=== PATIENT | female | born 1935 | race Caucasian/White ===

== ENCOUNTER → 2016-08-04 | Outpatient (CLI) | payer OTHER ==
[~2016-08-04] MED LIST: LISI-167 PO; OXYC-302 PO; POLY119P4 PO
== END | disposition home or self-care (01) ==
LOC: CFH 11:18
PROVIDERS: ATTEND Internal Medicine
DX: M17.12 Unilateral primary osteoarthritis, left knee (principal); M16.12 Unilateral primary osteoarthritis, left hip

== ENCOUNTER 2018-05-02 04:08 | Inpatient (IN) | payer MEDICARE, OTHER ==
[~2018-05-02] VITALS: Ht 162.6 cm; Wt 71.8 kg
--- NOTE | 2018-05-02 04:21 | NUR ---
PT STATES POOR ORAL INTAKE SINCE MONDAY AND "I HAVENT REALLY POOPED SINCE MONDAY." PRESENTS TO ED C/O CARO AND LL ABD PAIN. STATES RECENT COLONOSCOPY W/ DX OF DIVERTICULOSIS. DENIES BLOODY STOOLS. DENIES SOB/CP. MONITORING APPLIED. CALL LIGHT WITHIN REACH.
--- NOTE | 2018-05-02 04:45 | NUR ---
UA OBTAINED AND PT HOOKED UP TO ALL MONITORING.
[2018-05-02] MEDS ORDERED: ONDANSETRON 2MG/ML, 2ML ONE ×4 (04:49→12:38)
[2018-05-02] MEDS ORDERED: MORPHINE SULFATE 4 MG/ML, 1ML ONE ×2 (04:50→05:30)
[2018-05-02] MEDS: MORPHINE SULFATE 4 MG/ML, 1ML IVPush PRN ×2 (04:53→05:34)
[2018-05-02] MEDS ORDERED: SODIUM CHLORIDE FLUSH 10ML SYR IVF ONE (05:00)
[2018-05-02] MEDS ORDERED: ONDANSETRON 2MG/ML, 2ML IVPush ONE ×2 (05:00→07:30)
[2018-05-02 05:04] LABS: CULTURE INDICATED? YES; MICROSCOPIC INDICATED
[2018-05-02 05:21] LABS: BASOPHILS # (AUTO) 0.03 x10^3/uL (0-0.1); BASOPHILS % (AUTO) 0 % (0-1); EOSINOPHILS # (AUTO) 0.14 x10^3/uL (0-0.4); EOSINOPHILS % (AUTO) 1 % (1-7); LYMPHOCYTES # (AUTO) 2.06 x10^3/uL (1-3.4); LYMPHOCYTES % (AUTO) 20 % (22-44); MD NO; MEAN CORPUSCULAR HEMOGLOBIN 30.2 pg (27.0-34.8); MEAN CORPUSCULAR VOLUME 88.9 fL (80-100); MEAN PLATELET VOLUME 9.5 fL (7.4-10.4); MONOCYTES # (AUTO) 0.89 x10^3/uL (0.2-0.8); MONOCYTES % (AUTO) 8 % (2-9); NEUTROPHILS # (AUTO) 7.39 x10^3/uL (1.8-6.8); NEUTROPHILS % (AUTO) 70 % (42-75); PLATELET COUNT 249 x10^3/uL (130-400); RED BLOOD COUNT 4.98 x10^6/uL (3.82-5.3); RED CELL DISTRIBUTION WIDTH 15.7 % (9.6-15.2)
--- NOTE | 2018-05-02 05:34 | NUR ---
PT STATES NO PAIN RELIEF FROM FIRST MORPHINE DOSE. GIVEN SECOND PER MAR AT THIS TIME.
[2018-05-02 05:35] LABS: ALANINE AMINOTRANSFERASE 22 U/L (12-78); ALBUMIN 3.8 g/dL (3.4-5.0); ANION GAP 8 mmol/L (5-15); CALCIUM 10.6 mg/dL (8.5-10.1); CHLORIDE 105 mmol/L (98-107); CREATININE 1.19 mg/dL (0.55-1.02)
[2018-05-02 05:39] LABS: ALKALINE PHOSPHATASE 74 U/L (45-117); BILIRUBIN,TOTAL 0.4 mg/dL (0.2-1.0); TOTAL PROTEIN 7.8 g/dL (6.4-8.2); TROPONIN I < 0.015 ng/mL (0.000-0.045)
[2018-05-02] MEDS ORDERED: OMNIPAQUE 350 MG/ML, 100ML BOTTLE ONE (06:03)
[2018-05-02] MEDS ORDERED: FENTANYL PF 100 MCG/2ML ONE (06:13)
--- NOTE | 2018-05-02 06:17 | NUR ---
PT STATES PAIN OF 9.5/10 STILL. PA NOTIFIED. GIVEN FENTANYL PER MAY. AWAITING CT RESULTS.
[2018-05-02] MEDS ORDERED: FENTANYL PF 100 MCG/2ML IVPush ONE (06:30)
--- NOTE | 2018-05-02 06:32 | NUR ---
PT DESAT TO MID 80'S AFTER PAIN MEDICAITON. PUT ON 3 L NC AND SAT 91% AND >.
--- NOTE | 2018-05-02 06:38 | NUR ---
ALL RESULTS BACK. PA TO CONSULT UROLOGY.
--- NOTE | 2018-05-02 06:46 | NUR ---
PT REPORT TO SONG CASTRO.
[2018-05-02] MEDS ORDERED: ASPI-647 PO (07:20)
[2018-05-02] MEDS ORDERED: AMLO10TA8 PO (07:20)
[2018-05-02] MEDS ORDERED: LOSA100T14 PO (07:20)
[2018-05-02] MEDS ORDERED: CALC1TAB86 PO (07:20)
[2018-05-02] MEDS ORDERED: SODIUM CHLORIDE FLUSH 10ML SYR IVF PRN (07:30)
[2018-05-02] MEDS ORDERED: hydrALAzine 20 MG/ML, 1ML IVPush PRN (08:30)
[2018-05-02] MEDS ORDERED: PLEASE ENTER HEIGHT AND WEIGHT MC SCH (08:30)
[2018-05-02] MEDS ORDERED: LACTATED RINGERS 1,000 ML IV SCH (08:30)
[2018-05-02] MEDS ORDERED: ONDANSETRON 2MG/ML, 2ML IVPush PRN (08:30)
[2018-05-02] MEDS: CEFTRIAXONE PMX 1GM/50ML 50 ML IV SCH (09:50)
[2018-05-02] MEDS: morphine SULFATE 10 MG/ML, 1ML IVPush PRN ×2 (11:00→15:35)
[2018-05-02] MEDS ORDERED: FENTANYL PF 250 MCG/5ML ONE (12:21)
[2018-05-02] MEDS ORDERED: MIDAZOLAM 1 MG/ML, 2ML ONE (12:21)
[2018-05-02] MEDS ORDERED: ROCURONIUM 10MG/ML,5ML ONE (12:38)
[2018-05-02] MEDS ORDERED: PROPOFOL 10 MG/ML, 20ML ONE (12:38)
[2018-05-02] MEDS ORDERED: DEXAMETHASONE 4 MG/ML, 1ML ONE ×2 (12:38)
[2018-05-02] MEDS ORDERED: LIDOCAINE 2% 100MG/5ML SYRINGE ONE (12:38)
[2018-05-02] MEDS ORDERED: SUCCINYLCHOLINE 20 MG/ML, 10ML ONE (12:58)
[2018-05-02] MEDS ORDERED: CEFAZOLIN 1,000 MG ONE (12:58)
[2018-05-02] MEDS ORDERED: PHENYLEPHRINE 10 MG/ML ONE (12:58)
[2018-05-02] MEDS ORDERED: HYDROmorphone 2 MG/ML, 1ML IVPush PRN (13:00)
[2018-05-02] MEDS ORDERED: PROMETHAZINE 25 MG/ML, 1ML IV PRN (13:00)
[2018-05-02] MEDS ORDERED: HALOPERIDOL 5 MG/ML IV PRN (13:00)
[2018-05-02] MEDS ORDERED: hydrALAzine 20 MG/ML, 1ML IV PRN (13:00)
[2018-05-02] MEDS ORDERED: DIAZEPAM 5 MG/ML, 2ML IVPush PRN (13:00)
[2018-05-02] MEDS ORDERED: MEPERIDINE/PF 25MG/0.5ML IVPush PRN (13:00)
[2018-05-02] MEDS ORDERED: FENTANYL PF 100 MCG/2ML IV PRN (13:00)
[2018-05-02] MEDS ORDERED: OXYcodone 5 MG/5 ML ORAL.SOL UDC PO PRN (13:00)
[2018-05-02] MEDS ORDERED: ACETAMINOPHEN 325 MG TABLET PO PRN (13:00)
[2018-05-02] MEDS ORDERED: MEPERIDINE/PF 25MG/ML,1ML ONE (14:48)
[2018-05-02] MEDS ORDERED: ONDANSETRON 2MG/ML, 2ML IV PRN (16:00)
[2018-05-02] MEDS ORDERED: HYDROcodone/APAP 5/325 TABLET PO PRN (16:00)
[2018-05-02] MEDS: LISINOPRIL MC SCH (16:00)
[2018-05-02] MEDS ORDERED: POLYETHYLENE GLYCOL 17 GM PACKET PO PRN (16:00)
[2018-05-02 16:34] VITALS: BP 120/69
[2018-05-02] MEDS: CALCIUM/VITAMIN D3 250-125 TABLET PO SCH ×2 (18:11→20:30)
[2018-05-02] MEDS: D5%-LACTATED RINGERS 1,000 ML IV SCH (18:11)
[2018-05-02 20:00] VITALS: BP 120/68
[2018-05-02] MEDS: morphine SULFATE 10 MG/ML, 1ML IV PRN (20:29)
[2018-05-03 02:00] VITALS: BP 111/64
[2018-05-03] MEDS: morphine SULFATE 10 MG/ML, 1ML IV PRN (03:53)
[2018-05-03] MEDS: D5%-LACTATED RINGERS 1,000 ML IV SCH (05:08)
[2018-05-03 05:19] LABS: BASOPHILS # (AUTO) 0.03 x10^3/uL (0-0.1); BASOPHILS % (AUTO) 0 % (0-1); EOSINOPHILS % (AUTO) 0 % (1-7); LYMPHOCYTES # (AUTO) 1.12 x10^3/uL (1-3.4); LYMPHOCYTES % (AUTO) 11 % (22-44); MD NO; MEAN CORPUSCULAR HEMOGLOBIN 29.9 pg (27.0-34.8); MEAN CORPUSCULAR HGB CONC 32.8 g/dL (32.4-35.8); MEAN CORPUSCULAR VOLUME 91.1 fL (80-100); MEAN PLATELET VOLUME 9.4 fL (7.4-10.4); MONOCYTES # (AUTO) 0.86 x10^3/uL (0.2-0.8); MONOCYTES % (AUTO) 9 % (2-9); NEUTROPHILS # (AUTO) 7.87 x10^3/uL (1.8-6.8); NEUTROPHILS % (AUTO) 80 % (42-75); PLATELET COUNT 201 x10^3/uL (130-400); RED BLOOD COUNT 3.77 x10^6/uL (3.82-5.3); RED CELL DISTRIBUTION WIDTH 15.6 % (9.6-15.2)
[2018-05-03 05:26] LABS: ALANINE AMINOTRANSFERASE 16 U/L (12-78); ALBUMIN 2.9 g/dL (3.4-5.0); ANION GAP 5 mmol/L (5-15); CALCIUM 9.1 mg/dL (8.5-10.1); CHLORIDE 108 mmol/L (98-107); CREATININE 1.15 mg/dL (0.55-1.02)
[2018-05-03 05:29] LABS: ALKALINE PHOSPHATASE 55 U/L (45-117); BILIRUBIN,TOTAL 0.3 mg/dL (0.2-1.0); TOTAL PROTEIN 5.8 g/dL (6.4-8.2)
[2018-05-03 07:22] VITALS: BP 95/54
[2018-05-03] MEDS: LISINOPRIL MC SCH ×2 (08:00)
[2018-05-03] MEDS: CEFTRIAXONE PMX 1GM/50ML 50 ML IV SCH (08:33)
[2018-05-03] MEDS: CALCIUM/VITAMIN D3 250-125 TABLET PO SCH (08:34)
[2018-05-03] MEDS ORDERED: AMLODIPINE 10 MG TAB PO SCH (09:00)
[2018-05-03] MEDS ORDERED: ASPIRIN 325 MG TABLET PO SCH (09:00)
[2018-05-03] MEDS ORDERED: LOSARTAN 50MG TABLET PO SCH (09:00)
[2018-05-03 12:40] VITALS: BP 95/52
[2018-05-03] MEDS ORDERED: TRAM50TA2 PO (13:27)
[2018-05-03] MEDS ORDERED: ONDA4TAB13 SL (13:27)
[2018-05-03] MEDS ORDERED: POLY17PO5 PO (13:27)
[2018-05-03] MEDS ORDERED: CEFD300C37 PO (13:27)
[2018-05-03] MEDS ORDERED: LOSA50TA2 PO (13:27)
[2018-05-03] MEDS ORDERED: LACT1TAB13 PO (13:32)
== END 2018-05-03 15:45 | disposition home or self-care (01) | DRG 669 ==
LOC: ED 06:17 → EDIP 07:28 → SUATTDRO 07:46 → 3NE 08:31 → DCLOUNGE 05-03 15:32
PROVIDERS: ADMIT Internal Medicine; ATTEND Internal Medicine
PROC: BT1F1ZZ Fluoroscopy of Left Kidney, Ureter and Bladder using Low Osmolar Contrast (ICD-10-PCS; 2018-05-02)
PROC: 0TC78ZZ Extirpation of Matter from Left Ureter, Via Natural or Artificial Opening Endoscopic (ICD-10-PCS; principal; 2018-05-02 17:00)
DX: N13.6 Pyonephrosis (principal); R71.0 Precipitous drop in hematocrit; N17.0 Acute kidney failure with tubular necrosis; E78.5 Hyperlipidemia, unspecified; E83.51 Hypocalcemia; K57.30 Diverticulosis of large intestine without perforation or abscess without bleeding; I10 Essential (primary) hypertension; K59.00 Constipation, unspecified; K76.0 Fatty (change of) liver, not elsewhere classified; M51.36 Other intervertebral disc degeneration, lumbar region; N28.1 Cyst of kidney, acquired; Z80.1 Family history of malignant neoplasm of trachea, bronchus and lung; Z90.49 Acquired absence of other specified parts of digestive tract
CPT/HCPCS: 36415; 74022; 74177; 74420; 80053; 81001; 82330; 82360; 83690; 83735; 84100; 84484; 85025; 87040; 87086; 88300; 93005; 96374; 96375; 99285; C1726; G0378; J0690; J0696; J1100; J2250; J2405; J2704; J3010; Q9967; C1769; J0330; J2270; J2370; J7120; J7121

== ENCOUNTER 2019-05-08 07:19 | Day surgery (SDC) | payer MEDICARE ==
[~2019-05-08] VITALS: Ht 160 cm; Wt 70.5 kg
[~2019-05-08 07:19] MED LIST changes: +AMLO-150 PO; +AMLO10TA8 PO; +ASPI-515 PO; +ASPI-647 PO; +ATOR10TA9 PO; +CALC-545 PO; +CALC-725 PO; +CEFD300C37 PO; +CEPH250T PO; +CHOL2000 PO; +DOCU-131 PO; +FIBER; +L.AC1CAP6 PO; +LACT1TAB13 PO; +LOSA100T14 PO; +LOSA50TA14 PO; +LOSA50TA2 PO; +OMEGA FISH OIL PO; +ONDA4TAB13 SL; +POLY17PO5 PO; +TRAM50TA2 PO; +VITA600C2 PO
[2019-05-08 07:39] VITALS: BP 121/75
[2019-05-08] MEDS ORDERED: LACTATED RINGERS 1,000 ML IV SCH (07:39)
[2019-05-08] MEDS ORDERED: ACETAMINOPHEN 325 MG TABLET PO PRN (08:00)
[2019-05-08] MEDS ORDERED: FENTANYL PF 100 MCG/2ML IV PRN (08:00)
[2019-05-08] MEDS ORDERED: PROMETHAZINE 25 MG/ML, 1ML IV PRN (08:00)
[2019-05-08] MEDS ORDERED: hydrALAzine 20 MG/ML, 1ML IV PRN (08:00)
[2019-05-08] MEDS ORDERED: HYDROcodone/APAP 7.5-325MG/15ML UDC PO PRN (08:00)
[2019-05-08] MEDS ORDERED: MORPHINE SULFATE 4 MG/ML, 1ML IVPush PRN (08:00)
[2019-05-08] MEDS ORDERED: LABETALOL 5MG/ML, 20ML IV PRN (08:00)
[2019-05-08] MEDS ORDERED: ONDANSETRON 2MG/ML, 2ML IV PRN (08:00)
[2019-05-08] MEDS ORDERED: OXYcodone 5 MG/5 ML ORAL.SOL UDC PO PRN (08:00)
[2019-05-08] MEDS ORDERED: FENTANYL PF 250 MCG/5ML ONE (08:39)
[2019-05-08] MEDS ORDERED: DEXAMETHASONE 4 MG/ML, 1ML ONE (09:42)
[2019-05-08] MEDS ORDERED: CEFAZOLIN 1,000 MG ONE (09:47)
[2019-05-08] MEDS ORDERED: PROPOFOL 10 MG/ML, 20ML ONE (09:57)
[2019-05-08] MEDS ORDERED: EPHEDRINE 50 MG/ML, 1ML ONE (09:57)
[2019-05-08] MEDS ORDERED: ONDANSETRON 2MG/ML, 2ML ONE (09:57)
== END 2019-05-08 15:30 | disposition home or self-care (01) ==
LOC: OUT 07:19
PROVIDERS: ATTEND Urology
DX: N20.0 Calculus of kidney (principal); I10 Essential (primary) hypertension; Z79.891 Long term (current) use of opiate analgesic; Z79.899 Other long term (current) drug therapy; Z91.040 Latex allergy status; Z88.2 Allergy status to sulfonamides; Z88.8 Allergy status to other drugs, medicaments and biological substances
CPT/HCPCS: 50590; J0690; J1100; J2405; J2704; J3010; J7120

== ENCOUNTER 2019-05-09 05:56 | Emergency (ER) | payer MEDICARE ==
[~2019-05-09] VITALS: Ht 160 cm; Wt 71.7 kg
--- NOTE | 2019-05-09 06:25 | NUR ---
THIS IS A 83 YO FEMALE COMING IN FOR RLQ AND RIGHT FLANK PAIN STARTIN AT 0200 TODAY. PATIENT STATES " YESTERDAY I HAD A PROCEDURE DONE TO BREAK UP A KIDNEY STONE IN MY RIGHT KIDNEY. IT DIDN'T HURT REALLY AT ALL YESTERDAY, AND NOW IT HURTS A LOT AND NOTHING I AM TAKING AT HOME HELPS". PATIENT BROUGHT RX IN THAT WAS PRESCRIBED TO HER AFTER PROCEDURE, IT IS 50MG TRAMADOL. PATIENT STATES SHE TOOK IT AT 0200 AND 0430 WITH NO RELIEF. PATIENT ALSO C/O "I FEEL LIKE I HAVE TO PEE ALL THE TIME BUT NOTHING REALLY COMES OUT, AND IT FANG A LITTLE WHEN IT DOES". PATIENT AMBULATORY WITH STEADY GAIT TO RESTROOM AT THIS TIME, GIVEN UA CUP. NAD AT THIS TIME
[2019-05-09] MEDS ORDERED: KETOROLAC 30 MG/1 ML ONE (06:59)
[2019-05-09] MEDS ORDERED: MORPHINE SULFATE 4 MG/ML, 1ML ONE (06:59)
[2019-05-09] MEDS ORDERED: ONDANSETRON 2MG/ML, 2ML ONE (06:59)
[2019-05-09] MEDS ORDERED: KETOROLAC 30 MG/1 ML IVPush ONE (07:00)
[2019-05-09] MEDS ORDERED: SODIUM CHLORIDE 0.9% 1,000ML IV ONE (07:00)
[2019-05-09] MEDS ORDERED: ONDANSETRON 2MG/ML, 2ML IVPush ONE (07:00)
[2019-05-09] MEDS ORDERED: MORPHINE SULFATE 4 MG/ML, 1ML IVPush PRN (07:00)
--- NOTE | 2019-05-09 07:05 | NUR ---
PATIENT MEDICATED PER EMAR, TOLERATED WELL. REPORT GIVEN TO GLORIA NEWTON. PLAN OF CARE DISCUSSED.
[2019-05-09 07:20] VITALS: BP 136/53
--- NOTE | 2019-05-09 07:20 | NUR ---
PT STRAIGHT CATH COMPLETED, SAMPLE WALKED TO LAB, VSS, NAD NOTED AT THIS TIME
[2019-05-09 07:35] LABS: BASOPHILS # (AUTO) 0.03 x10^3/uL (0-0.1); BASOPHILS % (AUTO) 0 % (0-1); EOSINOPHILS # (AUTO) 0.01 x10^3/uL (0-0.4); EOSINOPHILS % (AUTO) 0 % (1-7); LYMPHOCYTES # (AUTO) 0.97 x10^3/uL (1-3.4); LYMPHOCYTES % (AUTO) 10 % (22-44); MD NO; MEAN CORPUSCULAR HEMOGLOBIN 29.6 pg (27.0-34.8); MEAN CORPUSCULAR HGB CONC 32.3 g/dL (32.4-35.8); MEAN CORPUSCULAR VOLUME 91.7 fL (80-100); MEAN PLATELET VOLUME 9.5 fL (7.4-10.4); MONOCYTES # (AUTO) 0.63 x10^3/uL (0.2-0.8); MONOCYTES % (AUTO) 7 % (2-9); NEUTROPHILS # (AUTO) 8.02 x10^3/uL (1.8-6.8); NEUTROPHILS % (AUTO) 83 % (42-75); PLATELET COUNT 195 x10^3/uL (130-400); RED BLOOD COUNT 4.25 x10^6/uL (3.82-5.3); RED CELL DISTRIBUTION WIDTH 15.8 % (9.6-15.2)
[2019-05-09 07:42] LABS: ALBUMIN 3.3 g/dL (3.4-5.0); ANION GAP 7 mmol/L (5-15); CALCIUM 8.8 mg/dL (8.5-10.1); CHLORIDE 109 mmol/L (98-107); CREATININE 0.83 mg/dL (0.55-1.02)
[2019-05-09 07:48] LABS: MICROSCOPIC INDICATED
[2019-05-09 07:59] LABS: CULTURE INDICATED? NO
--- NOTE | 2019-05-09 08:41 | NUR ---
TASK RN: CARE PROVDIED FOR DC ONLY. PIV DC. REVIEWED DC INSTRUCTIONS W/ PT. UNDERSTANDING VERBALIZED. AMBULATORY W/ A STEADY GAIT.
== END 2019-05-09 08:42 | disposition home or self-care (01) ==
LOC: ED 06:46
DX: N20.1 Calculus of ureter (principal); I10 Essential (primary) hypertension; E78.5 Hyperlipidemia, unspecified; Z90.49 Acquired absence of other specified parts of digestive tract; Z87.891 Personal history of nicotine dependence
CPT/HCPCS: 36415; 51701; 74018; 80048; 81001; 82040; 85025; 96374; 96375; 99284; J1885; J2270; J2405; J7030; P9612